=== PATIENT | male | born 1965 | race Caucasian/White ===

== ENCOUNTER 2016-06-10 04:16 | Inpatient (IN) | payer MEDICAID ==
[2016-06-09 13:25] LABS: HEMOGLOBIN 15.2 g/dL (13.7-18.0)
[2016-06-09 13:37] LABS: ASPARTATE AMINO TRANSFERASE 13 U/L (15-37); BLOOD UREA NITROGEN 8 mg/dL (7-18)
[~2016-06-10] VITALS: Ht 172.7 cm; Wt 76.4 kg
[~2016-06-10 04:16] MED LIST: AZIT500T PO; CIPR500T87 PO; GABA300C PO; HYDR-3138 PO; MELO7.5T5 PO; NAPR-874 PO; NICO1PAT4 TD; NONE PER PT; OXYC-229 PO; OXYC10TA6 PO; PARO10TA24 PO; QUET100T4 PO; RANI150T8 PO; SENN1TAB7 PO; SERT50TA PO
[2016-06-10] MEDS ORDERED: ALBUMIN HUMAN 5% 500 ML IV ONE (04:30)
[2016-06-10] MEDS ORDERED: DO NOT GIVE MC SCH (04:30)
[2016-06-10 04:32] VITALS: BP_SYST 113; BP_SYST 125; BP_DIAS 82; BP_DIAS 83
[2016-06-10] MEDS: CHLORHEXIDINE MOUTHWASH 15 ML UDC MM SCH ×2 (05:05→22:25)
[2016-06-10] MEDS: MUPIROCIN OINT 2%, 22GM TP SCH ×3 (05:05→21:35)
[2016-06-10] MEDS ORDERED: OXYcodone/APAP 5/325MG TABLET PO ONE (05:30)
[2016-06-10] MEDS ORDERED: INSULIN ASPART 100 UNITS/ML, PEN SQ-INSULIN SCH ×2 (06:00→13:00)
[2016-06-10] MEDS ORDERED: FENTANYL PF 1000 MCG/20ML ONE (06:49)
[2016-06-10] MEDS ORDERED: MIDAZOLAM 10MG/2 ML ONE (06:49)
[2016-06-10] MEDS ORDERED: POTASSIUM CHLORIDE 80 MEQ, SODIUM BICARBONATE 8.4% 10 MEQ, MAGNESIUM SULFATE 0.5 GM, LI... IV PRN (07:30)
[2016-06-10] MEDS ORDERED: VANCOMYCIN 1,100 MG in SODIUM CHLORIDE 0.9% 250 ML IV PRN (07:30)
[2016-06-10] MEDS ORDERED: REGULAR INSULIN 62.5 UNITS in SODIUM CHLORIDE 0.9% 249.375 ML IV PRN (07:30)
[2016-06-10] MEDS ORDERED: PHENYLEPHRINE 10 MG in SODIUM CHLORIDE 0.9% 249 ML IV PRN (07:30)
[2016-06-10] MEDS ORDERED: DEXMEDETOMIDINE 200 MCG in SODIUM CHLORIDE 0.9% 48 ML IV SCH (07:30)
[2016-06-10] MEDS ORDERED: EPINEPHRINE 2 MG in SODIUM CHLORIDE 0.9% 248 ML IV SCH (07:30)
[2016-06-10] MEDS ORDERED: CEFUROXIME 1.5 GM in SODIUM CHLORIDE 0.9% 50 ML IVPB PRN (07:30)
[2016-06-10] MEDS ORDERED: MANNITOL PMX 20% 500 ML IVPB PRN (07:30)
[2016-06-10] MEDS: SODIUM CHLORIDE FLUSH 10ML SYR IVF SCH ×2 (09:51→21:37)
[2016-06-10] MEDS: OXYcodone/APAP 5/325MG TABLET PO PRN ×3 (11:20→23:55)
[2016-06-10] MEDS ORDERED: ACETAMINOPHEN 325 MG TABLET PO PRN (13:00)
[2016-06-10] MEDS ORDERED: MAGNESIUM HYDROXIDE 8%, 30ML UDC PO PRN (13:00)
[2016-06-10 14:42] VITALS: BP 106/70
[2016-06-10 18:50] VITALS: BP 111/70
[2016-06-10] MEDS ORDERED: CHLORHEXIDINE MOUTHWASH 15 ML UDC MM PRN (19:00)
[2016-06-10] MEDS ORDERED: SODIUM CHLORIDE FLUSH 10ML SYR IVF SCH (21:00)
[2016-06-11] MEDS ORDERED: ALBUMIN HUMAN 5% 500 ML IV ONE (00:30)
[2016-06-11 04:43] VITALS: BP_SYST 108; BP_SYST 123; BP_DIAS 71; BP_DIAS 83
[2016-06-11] MEDS: MUPIROCIN OINT 2%, 22GM TP SCH ×2 (05:04→11:31)
[2016-06-11] MEDS: OXYcodone/APAP 5/325MG TABLET PO PRN (05:51)
[2016-06-11] MEDS ORDERED: MIDAZOLAM 10MG/2 ML ONE (06:46)
[2016-06-11] MEDS ORDERED: FENTANYL PF 1000 MCG/20ML ONE (06:46)
[2016-06-11] MEDS ORDERED: PROTAMINE SULFATE 10 MG/ML, 5ML ONE (07:22)
[2016-06-11] MEDS ORDERED: ROCURONIUM 10 MG/ML ONE ×2 (07:22)
[2016-06-11] MEDS ORDERED: DEXAMETHASONE 4 MG/ML, 1ML ONE (07:22)
[2016-06-11] MEDS ORDERED: PROPOFOL 10 MG/ML, 20ML ONE ×2 (07:22)
[2016-06-11] MEDS ORDERED: EPINEPHRINE 1 MG/ML, 1ML ONE (07:22)
[2016-06-11] MEDS ORDERED: VANCOMYCIN 1,100 MG in SODIUM CHLORIDE 0.9% 250 ML IVPB PRN (07:30)
[2016-06-11] MEDS ORDERED: REGULAR INSULIN 62.5 UNITS in SODIUM CHLORIDE 0.9% 249.375 ML IV PRN ×2 (07:30→10:11)
[2016-06-11] MEDS ORDERED: DEXMEDETOMIDINE 200 MCG in SODIUM CHLORIDE 0.9% 48 ML IV SCH (07:30)
[2016-06-11] MEDS ORDERED: POTASSIUM CHLORIDE 80 MEQ, SODIUM BICARBONATE 8.4% 10 MEQ, MAGNESIUM SULFATE 0.5 GM, LI... IV PRN (07:30)
[2016-06-11] MEDS ORDERED: MANNITOL PMX 20% 500 ML IVPB PRN (07:30)
[2016-06-11] MEDS ORDERED: CEFUROXIME 1.5 GM in SODIUM CHLORIDE 0.9% 50 ML IVPB PRN (07:30)
[2016-06-11] MEDS ORDERED: EPINEPHRINE 2 MG in SODIUM CHLORIDE 0.9% 248 ML IV SCH (07:30)
[2016-06-11] MEDS ORDERED: PHENYLEPHRINE 10 MG in SODIUM CHLORIDE 0.9% 249 ML IV PRN ×2 (07:30→10:11)
[2016-06-11] MEDS ORDERED: MAGNESIUM SULFATE PMX 2GM/50ML 50 ML ONE (09:23)
[2016-06-11] MEDS ORDERED: SODIUM CHLORIDE 0.9% 1,000 ML IV ONE (10:11)
[2016-06-11] MEDS ORDERED: DOBUTAMINE 250 MG in SODIUM CHLORIDE 0.9% 230 ML IV PRN (10:11)
[2016-06-11] MEDS ORDERED: NITROGLYCERIN/D5W PMX 250 ML IV PRN (10:11)
[2016-06-11] MEDS ORDERED: DEXMEDETOMIDINE 200 MCG in SODIUM CHLORIDE 0.9% 48 ML IV PRN (10:11)
[2016-06-11] MEDS ORDERED: SODIUM CHLORIDE 0.9% 1,000 ML IV PRN (10:11)
[2016-06-11] MEDS ORDERED: DEXTROSE 50%, 50ML SYRINGE IVPush PRN (10:30)
[2016-06-11] MEDS ORDERED: BISACODYL 5 MG EC TABLET PO PRN (10:30)
[2016-06-11] MEDS: KSCALE TO 4.5 IV SCH ×3 (10:30→22:30)
[2016-06-11] MEDS ORDERED: GLUCAGON 1 MG IM PRN (10:30)
[2016-06-11] MEDS ORDERED: MIDAZOLAM 1 MG/ML, 5ML IVPush PRN (10:30)
[2016-06-11] MEDS ORDERED: BISACODYL 10 MG SUPP PR PRN (10:30)
[2016-06-11] MEDS ORDERED: ACETAMINOPHEN 325 MG TABLET PO PRN (10:30)
[2016-06-11] MEDS ORDERED: DEXTROSE 4 GM TAB.CHEW PO PRN (10:30)
[2016-06-11] MEDS ORDERED: morphine SULFATE 10 MG/ML, 1ML IVPush PRN (10:30)
[2016-06-11] MEDS ORDERED: INSULIN ASPART 100 UNITS/ML, PEN SQ-INSULIN PRN (10:30)
[2016-06-11] MEDS ORDERED: EPINEPHRINE 2 MG in SODIUM CHLORIDE 0.9% 248 ML IV PRN (10:30)
[2016-06-11] MEDS ORDERED: MEPERIDINE/PF 25MG/0.5ML IVPush PRN (10:30)
[2016-06-11] MEDS ORDERED: ACETAMINOPHEN 650 MG SUPP PR PRN (10:30)
[2016-06-11] MEDS ORDERED: PROCHLORPERAZINE 5 MG/ML, 2ML IVPush PRN (10:30)
[2016-06-11 10:50] LABS: ABG COLLECTION SITE ARTERIAL LINE
[2016-06-11 10:51] LABS: FIO2 50 %
[2016-06-11 10:55] LABS: HEMOGLOBIN 11.4 g/dL (13.7-18.0)
[2016-06-11] MEDS ORDERED: LIDOCAINE 2% 100MG/5ML SYRINGE ONE (10:55)
[2016-06-11] MEDS ORDERED: SODIUM BICARB 8.4%, 50ML SYRINGE ONE (10:55)
[2016-06-11] MEDS ORDERED: ALBUMIN HUMAN 25% 50 ML ONE (10:55)
[2016-06-11] MEDS ORDERED: PROTAMINE SULFATE 10 MG/ML, 25ML ONE (10:55)
[2016-06-11] MEDS ORDERED: HEPARIN 1,000 UNITS/ML, 30ML ONE (10:55)
[2016-06-11] MEDS ORDERED: AMINOCAPROIC ACID 250 MG/ML, 20ML ONE (10:55)
[2016-06-11] MEDS ORDERED: CALCIUM CHLORIDE 10%, 10ML SYR ONE (10:55)
[2016-06-11] MEDS ORDERED: SODIUM BICARBONATE 1 MEQ/ML, 50ML VIAL ONE (10:55)
[2016-06-11] MEDS ORDERED: methylPREDNISolone SOD SUCC 125 MG/2 ML ONE (10:56)
[2016-06-11] MEDS ORDERED: HEPARIN 1,000 UNITS/ML, 10ML ONE (10:56)
[2016-06-11] MEDS: SODIUM BICARB 8.4%, 50ML SYRINGE IV PRN ×2 (10:58→12:45)
[2016-06-11] MEDS: MAGNESIUM SULFATE 1 GM in SODIUM CHLORIDE 0.9% 50 ML IVPB SCH (10:59)
[2016-06-11] MEDS: CLEVIDIPINE 50 ML IV PRN ×2 (11:05→17:50)
[2016-06-11] MEDS ORDERED: HYDROmorphone 2 MG/ML, 1ML ONE (11:14)
[2016-06-11] MEDS ORDERED: SODIUM CHLORIDE 0.9% 1,000ML IVBOLUS PRN (11:30)
[2016-06-11] MEDS ORDERED: HYDROmorphone 2 MG/ML, 1ML IVPush PRN (11:30)
[2016-06-11] MEDS: SODIUM CHLORIDE FLUSH 10ML SYR IVF SCH ×2 (11:31→21:14)
[2016-06-11] MEDS: WARFARIN MODERAT DOSE PROTOCOL XX SCH (12:00)
[2016-06-11] MEDS: HYDROmorphone 2 MG/ML, 1ML IVPush PRN ×5 (15:28→23:40)
[2016-06-11] MEDS: OXYcodone IR 5MG TABLET PO PRN ×2 (16:23→19:23)
[2016-06-11 16:38] LABS: HEMOGLOBIN 12.3 g/dL (13.7-18.0)
[2016-06-11] MEDS ORDERED: HYDROmorphone 1 MG/ML, 1ML ONE (17:08)
[2016-06-11] MEDS: ONDANSETRON 2MG/ML, 2ML IVPush PRN (18:37)
[2016-06-11] MEDS: CEFUROXIME 1.5 GM in SODIUM CHLORIDE 0.9% 50 ML IVPB SCH (18:38)
[2016-06-11] MEDS: VANCOMYCIN 1,100 MG in SODIUM CHLORIDE 0.9% 250 ML IVPB SCH (19:23)
[2016-06-11] MEDS ORDERED: SODIUM CHLORIDE FLUSH 10ML SYR IVF SCH (21:00)
[2016-06-11] MEDS: DOCUSATE 100 MG CAPSULE PO SCH (21:14)
[2016-06-11] MEDS: MUPIROCIN OINT 2%, 22GM NAS SCH (21:15)
[2016-06-11 22:38] LABS: HEMOGLOBIN 11.9 g/dL (13.7-18.0)
[2016-06-11] MEDS: KETOROLAC 30 MG/1 ML IVPush SCH (23:54)
[2016-06-12] MEDS: CLEVIDIPINE 50 ML IV PRN (01:34)
[2016-06-12] MEDS: OXYcodone IR 5MG TABLET PO PRN ×5 (02:42→23:00)
[2016-06-12] MEDS: HYDROmorphone 2 MG/ML, 1ML IVPush PRN ×3 (03:40→11:32)
[2016-06-12] MEDS: KSCALE TO 4.5 IV SCH (04:30)
[2016-06-12 06:04] LABS: ABG COLLECTION SITE NOT DOCUMENTED
[2016-06-12] MEDS: KETOROLAC 30 MG/1 ML IVPush SCH ×4 (06:06→23:00)
[2016-06-12] MEDS: CEFUROXIME 1.5 GM in SODIUM CHLORIDE 0.9% 50 ML IVPB SCH (06:07)
[2016-06-12 06:20] LABS: BLOOD UREA NITROGEN 12 mg/dL (7-18)
[2016-06-12] MEDS: VANCOMYCIN 1,100 MG in SODIUM CHLORIDE 0.9% 250 ML IVPB SCH (08:05)
[2016-06-12] MEDS: ASPIRIN 81 MG TABLET EC PO SCH (10:20)
[2016-06-12] MEDS: DOCUSATE 100 MG CAPSULE PO SCH ×2 (10:20→20:33)
[2016-06-12] MEDS: PANTOPRAZOLE 40 MG IV IVPush SCH (10:20)
[2016-06-12] MEDS: CHLORHEXIDINE MOUTHWASH 15 ML UDC MM SCH ×2 (10:20→20:33)
[2016-06-12] MEDS: MUPIROCIN OINT 2%, 22GM NAS SCH ×2 (10:21→20:33)
[2016-06-12] MEDS: SODIUM CHLORIDE FLUSH 10ML SYR IVF SCH (10:21)
[2016-06-12] MEDS: OXYcodone/APAP 5/325MG TABLET PO PRN ×2 (10:33→17:14)
[2016-06-12] MEDS: WARFARIN MODERAT DOSE PROTOCOL XX SCH (12:00)
[2016-06-12] MEDS: ONDANSETRON 2MG/ML, 2ML IVPush PRN (14:18)
[2016-06-12] MEDS: MAGNESIUM SULFATE 1 GM in SODIUM CHLORIDE 0.9% 50 ML IVPB SCH (14:19)
[2016-06-12] MEDS: HYDROcodone/APAP 10/325 MG TABLET PO PRN ×2 (15:23→21:43)
[2016-06-12] MEDS ORDERED: WARFARIN 7.5 MG TABLET PO-COUM ONE (18:00)
[2016-06-12] MEDS: INSULIN ASPART 100 UNITS/ML, PEN SQ-INSULIN SCH (20:33)
[2016-06-13 04:00] VITALS: BP 130/73
[2016-06-13 04:26] LABS: HEMOGLOBIN 9.9 g/dL (13.7-18.0)
[2016-06-13 04:36] LABS: BLOOD UREA NITROGEN 18 mg/dL (7-18)
[2016-06-13] MEDS: OXYcodone/APAP 5/325MG TABLET PO PRN ×2 (05:15→12:37)
[2016-06-13] MEDS: KETOROLAC 30 MG/1 ML IVPush SCH ×3 (05:15→18:21)
[2016-06-13] MEDS: OXYcodone IR 5MG TABLET PO PRN ×3 (07:46→20:23)
[2016-06-13] MEDS ORDERED: POTASSIUM CHLORIDE 10 MEQ TABLET.ER PO SCH (09:00)
[2016-06-13] MEDS ORDERED: FUROSEMIDE 20 MG/2 ML IV SCH (09:00)
[2016-06-13] MEDS ORDERED: ENOXAPARIN 40 MG/0.4 ML SQ SCH (09:00)
[2016-06-13] MEDS: INSULIN ASPART 100 UNITS/ML, PEN SQ-INSULIN SCH ×5 (10:01→20:33)
[2016-06-13] MEDS: CHLORHEXIDINE MOUTHWASH 15 ML UDC MM SCH (10:02)
[2016-06-13] MEDS: MUPIROCIN OINT 2%, 22GM NAS SCH ×2 (10:02→20:33)
[2016-06-13] MEDS: ASPIRIN 81 MG TABLET EC PO SCH (10:02)
[2016-06-13] MEDS: PANTOPRAZOLE 40 MG IV IVPush SCH (10:02)
[2016-06-13] MEDS: DOCUSATE 100 MG CAPSULE PO SCH ×2 (10:02→20:33)
[2016-06-13] MEDS: MAGNESIUM SULFATE 1 GM in SODIUM CHLORIDE 0.9% 50 ML IVPB SCH (10:04)
[2016-06-13] MEDS: WARFARIN MODERAT DOSE PROTOCOL XX SCH (12:00)
[2016-06-13] MEDS: ONDANSETRON 2MG/ML, 2ML IVPush PRN ×2 (12:37→16:31)
[2016-06-13 16:00] VITALS: BP 119/79
[2016-06-13] MEDS ORDERED: OXYcodone IR 5MG TABLET ONE ×2 (16:20→20:22)
[2016-06-13] MEDS ORDERED: ONDANSETRON 2MG/ML, 2ML ONE (16:30)
[2016-06-13] MEDS ORDERED: WARFARIN 7.5 MG TABLET PO-COUM ONE (18:00)
[2016-06-13] MEDS ORDERED: PROCHLORPERAZINE 5 MG/ML, 2ML ONE (18:23)
[2016-06-13 19:23] VITALS: BP 131/80
[2016-06-13] MEDS ORDERED: ACETAMINOPHEN 650 MG SUPP PR PRN (20:30)
[2016-06-13] MEDS ORDERED: ONDANSETRON 2MG/ML, 2ML IVPush PRN (20:30)
[2016-06-13] MEDS ORDERED: BISACODYL 5 MG EC TABLET PO PRN (20:30)
[2016-06-13] MEDS ORDERED: PROCHLORPERAZINE 5 MG/ML, 2ML IVPush PRN (20:30)
[2016-06-13] MEDS: ENOXAPARIN 40 MG/0.4 ML SQ SCH (20:30)
[2016-06-13] MEDS ORDERED: DEXTROSE 50%, 50ML SYRINGE IVPush PRN (20:30)
[2016-06-13] MEDS ORDERED: OXYcodone/APAP 5/325MG TABLET PO PRN (20:30)
[2016-06-13] MEDS ORDERED: ACETAMINOPHEN 325 MG TABLET PO PRN (20:30)
[2016-06-13] MEDS ORDERED: BISACODYL 10 MG SUPP PR PRN (20:30)
[2016-06-13] MEDS ORDERED: SODIUM CHLORIDE 0.9% 1,000 ML IV PRN (20:30)
[2016-06-13] MEDS ORDERED: DEXTROSE 4 GM TAB.CHEW PO PRN (20:30)
[2016-06-13] MEDS ORDERED: HYDROcodone/APAP 10/325 MG TABLET PO PRN (20:30)
[2016-06-13] MEDS ORDERED: DO NOT GIVE MC SCH (20:30)
[2016-06-13] MEDS ORDERED: GLUCAGON 1 MG IM PRN (20:30)
[2016-06-13] MEDS ORDERED: CHLORHEXIDINE MOUTHWASH 15 ML UDC MM SCH (20:30)
[2016-06-13] MEDS ORDERED: MAGNESIUM HYDROXIDE 8%, 30ML UDC PO PRN (20:30)
[2016-06-14] MEDS: KETOROLAC 30 MG/1 ML IVPush SCH ×5 (00:09→23:38)
[2016-06-14] MEDS: OXYcodone IR 5MG TABLET PO PRN ×8 (00:09→23:37)
[2016-06-14 02:00] VITALS: BP 120/80
[2016-06-14 04:22] LABS: BLOOD UREA NITROGEN 17 mg/dL (7-18)
[2016-06-14] MEDS: INSULIN ASPART 100 UNITS/ML, PEN SQ-INSULIN SCH ×2 (07:00→11:54)
[2016-06-14] MEDS: WARFARIN MODERAT DOSE PROTOCOL XX SCH (07:32)
[2016-06-14 08:38] VITALS: BP 134/82
[2016-06-14] MEDS: ASPIRIN 81 MG TABLET EC PO SCH (09:44)
[2016-06-14] MEDS: DOCUSATE 100 MG CAPSULE PO SCH ×2 (09:44→21:12)
[2016-06-14] MEDS: POTASSIUM CHLORIDE 10 MEQ TABLET.ER PO SCH (09:44)
[2016-06-14] MEDS: MUPIROCIN OINT 2%, 22GM NAS SCH ×2 (09:51→21:12)
[2016-06-14] MEDS: PANTOPRAZOLE 40 MG IV IVPush SCH (09:53)
[2016-06-14] MEDS: FUROSEMIDE 20 MG/2 ML IV SCH (09:55)
[2016-06-14 13:45] VITALS: BP 133/77
[2016-06-14] MEDS ORDERED: WARFARIN 5 MG TABLET PO-COUM ONE (18:00)
[2016-06-14 20:01] VITALS: BP 144/85
[2016-06-14] MEDS: ENOXAPARIN 40 MG/0.4 ML SQ SCH (21:12)
[2016-06-15 02:06] VITALS: BP 130/77
[2016-06-15] MEDS: OXYcodone IR 5MG TABLET PO PRN ×7 (04:03→23:43)
[2016-06-15 05:02] LABS: BLOOD UREA NITROGEN 17 mg/dL (7-18)
[2016-06-15] MEDS: KETOROLAC 30 MG/1 ML IVPush SCH ×4 (05:49→23:43)
[2016-06-15 07:53] VITALS: BP 133/88
[2016-06-15] MEDS ORDERED: HOLD COUMADIN MC PRN (08:00)
[2016-06-15] MEDS: PANTOPRAZOLE 40 MG IV IVPush SCH (10:13)
[2016-06-15] MEDS: MUPIROCIN OINT 2%, 22GM NAS SCH ×2 (10:14→20:36)
[2016-06-15] MEDS: DOCUSATE 100 MG CAPSULE PO SCH ×2 (10:14→20:35)
[2016-06-15] MEDS: FUROSEMIDE 20 MG/2 ML IV SCH (10:14)
[2016-06-15] MEDS: POTASSIUM CHLORIDE 10 MEQ TABLET.ER PO SCH (10:15)
[2016-06-15] MEDS: ASPIRIN 81 MG TABLET EC PO SCH (10:16)
[2016-06-15] MEDS: WARFARIN MODERAT DOSE PROTOCOL XX SCH (12:00)
[2016-06-15 13:28] VITALS: BP_SYST 129; BP_SYST 155; BP_DIAS 82; BP_DIAS 91
[2016-06-15 19:38] VITALS: BP 145/83
[2016-06-16] MEDS: OXYcodone IR 5MG TABLET PO PRN ×4 (02:28→13:09)
[2016-06-16 02:38] VITALS: BP 160/79
[2016-06-16] MEDS: KETOROLAC 30 MG/1 ML IVPush SCH ×3 (05:33→18:00)
[2016-06-16 05:43] LABS: BLOOD UREA NITROGEN 15 mg/dL (7-18)
[2016-06-16 07:24] VITALS: BP 138/78
[2016-06-16] MEDS ORDERED: HOLD COUMADIN MC PRN (08:00)
[2016-06-16] MEDS: MUPIROCIN OINT 2%, 22GM NAS SCH (09:00)
[2016-06-16] MEDS: ASPIRIN 81 MG TABLET EC PO SCH (10:51)
[2016-06-16] MEDS: FUROSEMIDE 20 MG/2 ML IV SCH (10:51)
[2016-06-16] MEDS: DOCUSATE 100 MG CAPSULE PO SCH (10:51)
[2016-06-16] MEDS: PANTOPRAZOLE 40 MG IV IVPush SCH (10:51)
[2016-06-16] MEDS: POTASSIUM CHLORIDE 10 MEQ TABLET.ER PO SCH (10:51)
[2016-06-16] MEDS: WARFARIN MODERAT DOSE PROTOCOL XX SCH (12:00)
[2016-06-16 15:15] VITALS: BP 137/84
[2016-06-16] MEDS ORDERED: ASPI-621 PO (15:28)
[2016-06-16] MEDS ORDERED: DOCU100C8 PO (15:29)
[2016-06-16] MEDS ORDERED: PANT40GR PO (15:33)
[2016-06-16] MEDS ORDERED: WARF1POW PO (15:38)
[2016-06-16] MEDS ORDERED: OXYC5TAB3 PO (15:51)
== END 2016-06-16 19:00 | disposition home health service (06) | DRG 221 ==
LOC: 5SO 04:16 → CCU 06-11 09:50 → UNDODISIN 06-13 15:49 → 5SO 06-13 16:12
PROVIDERS: ADMIT Thoracic Surgery (Cardiothoracic Vascular Surgery); ATTEND Thoracic Surgery (Cardiothoracic Vascular Surgery)
PROC: 0T9B70Z Drainage of Bladder with Drainage Device, Via Natural or Artificial Opening (ICD-10-PCS; 2016-06-09)
PROC: 5A1221Z Performance of Cardiac Output, Continuous (ICD-10-PCS; 2016-06-11)
PROC: B24BZZ4 Ultrasonography of Heart with Aorta, Transesophageal (ICD-10-PCS; 2016-06-11)
PROC: 02RF0JZ Replacement of Aortic Valve with Synthetic Substitute, Open Approach (ICD-10-PCS; principal; 2016-06-11 07:30)
DX: Q23.1 Congenital insufficiency of aortic valve (principal); F43.10 Post-traumatic stress disorder, unspecified; F17.210 Nicotine dependence, cigarettes, uncomplicated; Z79.01 Long term (current) use of anticoagulants; Z88.5 Allergy status to narcotic agent; Z88.8 Allergy status to other drugs, medicaments and biological substances
CPT/HCPCS: 36415; 36600; 71010; 71020; 80048; 80053; 81003; 82040; 82330; 82800; 82803; 82810; 82947; 82962; 83036; 83735; 84132; 84295; 85014; 85018; 85025; 85049; 85347; 85610; 85730; 86850; 86900; 86923; 87081; 88305; 88311; 93005; 93312; 93321; 93325; 94002; C1768; J0171; J0697; J1100; J1170; J1644; J1650; J1815; J1885; J2250; J2405; J2704; J2720; J3010; J3370; J3475; J3480; J3490; P9045; P9047; C1751; C1760; C9113; C9248; J0780; J1940; J2370; J2930; J7030; J7050

== ENCOUNTER 2016-07-07 11:10 | Emergency (ER) | payer MEDICAID ==
[~2016-07-07] VITALS: Ht 172.7 cm; Wt 73.0 kg
[~2016-07-07 11:10] MED LIST changes: +ASPI-621 PO; +DOCU100C8 PO; +OXYC5TAB3 PO; +PANT40GR PO; +WARF1POW PO
[2016-07-07] MEDS ORDERED: FENTANYL PF 100 MCG/2ML IVPush STA (11:23)
[2016-07-07] MEDS ORDERED: OXYC-223 PO (11:41)
[2016-07-07] MEDS ORDERED: METH-356 PO (11:41)
[2016-07-07] MEDS ORDERED: FENTANYL PF 100 MCG/2ML ONE (11:45)
[2016-07-07] MEDS ORDERED: ONDANSETRON 2MG/ML, 2ML ONE (11:45)
[2016-07-07 11:55] LABS: HEMOGLOBIN 13.1 g/dL (13.7-18.0)
[2016-07-07] MEDS ORDERED: ONDANSETRON 2MG/ML, 2ML IVPush ONE (12:00)
[2016-07-07 12:07] LABS: ASPARTATE AMINO TRANSFERASE 14 U/L (15-37); BLOOD UREA NITROGEN 9 mg/dL (7-18)
[2016-07-07 12:11] LABS: IS PT STATUS REG ER OR PRE ER? YES
[2016-07-07] MEDS ORDERED: LORazepam 2 MG/ML, 1ML ONE (12:36)
[2016-07-07] MEDS ORDERED: LORazepam 1MG TABLET PO ONE (13:00)
[2016-07-07] MEDS ORDERED: OMNIPAQUE 350 MG/ML, 100ML BOTTLE ONE (13:06)
[2016-07-07 13:23] VITALS: BP 117/76
== END 2016-07-07 14:25 | disposition home or self-care (01) ==
LOC: ED 14:11
DX: R07.2 Precordial pain (principal); J45.909 Unspecified asthma, uncomplicated; Z88.8 Allergy status to other drugs, medicaments and biological substances; Z88.1 Allergy status to other antibiotic agents
CPT/HCPCS: 36415; 71010; 71275; 74175; 80053; 83880; 84484; 85025; 85610; 93005; 96374; 96375; 99285; J2405; J3010; Q9967

== ENCOUNTER 2016-07-26 15:54 | Emergency (ER) | payer MEDICAID ==
[~2016-07-26] VITALS: Ht 175.3 cm; Wt 51.7 kg
[~2016-07-26 15:54] MED LIST changes: +METH-356 PO; +OXYC-223 PO
[2016-07-26] MEDS ORDERED: SERT25TA PO (17:23)
[2016-07-26] MEDS ORDERED: ZIPREXA PO (17:23)
[2016-07-26] MEDS ORDERED: SODIUM CHLORIDE 0.9% 1,000 ML IV ONE (18:01)
[2016-07-26] MEDS ORDERED: FAMOTIDINE 20 MG/2 ML ONE (18:18)
[2016-07-26] MEDS ORDERED: KETOROLAC 30 MG/1 ML ONE (18:18)
[2016-07-26] MEDS ORDERED: OXYcodone/APAP 5/325MG TABLET ONE (18:18)
[2016-07-26] MEDS ORDERED: MAALOX/HYOSCYAMINE/LIDOCAINE 45 ML BOTTLE ONE (18:18)
[2016-07-26] MEDS ORDERED: ONDANSETRON 2MG/ML, 2ML ONE (18:18)
[2016-07-26 18:29] LABS: ASPARTATE AMINO TRANSFERASE 12 U/L (15-37); BLOOD UREA NITROGEN 8 mg/dL (7-18)
[2016-07-26 18:30] LABS: IS PT STATUS REG ER OR PRE ER? YES
[2016-07-26] MEDS ORDERED: FAMOTIDINE 20 MG/2 ML IVP ONE (18:30)
[2016-07-26] MEDS ORDERED: KETOROLAC 30 MG/1 ML IVPush ONE (18:30)
[2016-07-26] MEDS ORDERED: ONDANSETRON 2MG/ML, 2ML IVPush ONE (18:30)
[2016-07-26] MEDS ORDERED: OXYcodone/APAP 5/325MG TABLET PO ONE (18:30)
[2016-07-26] MEDS ORDERED: MAALOX/HYOSCYAMINE/LIDOCAINE 45 ML BOTTLE PO ONE (18:30)
[2016-07-26 19:17] VITALS: BP 120/81
== END 2016-07-26 19:21 | disposition home or self-care (01) ==
LOC: ED 17:28
DX: K29.00 Acute gastritis without bleeding (principal); R07.89 Other chest pain; I25.2 Old myocardial infarction; K21.9 Gastro-esophageal reflux disease without esophagitis; M54.9 Dorsalgia, unspecified; G89.29 Other chronic pain; Z88.5 Allergy status to narcotic agent; Z88.8 Allergy status to other drugs, medicaments and biological substances
CPT/HCPCS: 36415; 74022; 76700; 80053; 84484; 85025; 85610; 93005; 96361; 96374; 96375; 99285; J1885; J2405; J7030; S0028

== ENCOUNTER 2016-08-07 16:01 | Emergency (ER) | payer MEDICAID ==
[~2016-08-07] VITALS: Ht 172.7 cm; Wt 74.8 kg
[~2016-08-07 16:01] MED LIST changes: +SERT25TA PO; +ZIPREXA PO
[2016-08-07 16:16] VITALS: BP 139/95
[2016-08-07] MEDS ORDERED: OXYcodone/APAP 5/325MG TABLET ONE (16:30)
[2016-08-07] MEDS ORDERED: OXYcodone/APAP 5/325MG TABLET PO ONE (16:30)
== END 2016-08-07 16:34 | disposition home or self-care (01) ==
LOC: ED 16:28
DX: Z76.0 Encounter for issue of repeat prescription (principal); I25.2 Old myocardial infarction; J45.909 Unspecified asthma, uncomplicated; K21.9 Gastro-esophageal reflux disease without esophagitis; Z95.2 Presence of prosthetic heart valve
CPT/HCPCS: 99283

== ENCOUNTER 2016-08-13 20:50 | Emergency (ER) | payer MEDICAID ==
[~2016-08-13] VITALS: Ht 152.4 cm; Wt 74.8 kg
[2016-08-13] MEDS ORDERED: OXYcodone/APAP 5/325MG TABLET ONE (22:11)
[2016-08-13 22:14] LABS: BLOOD UREA NITROGEN 10 mg/dL (7-18)
[2016-08-13 22:20] LABS: IS PT STATUS REG ER OR PRE ER? YES
[2016-08-13] MEDS ORDERED: WARFARIN 2 MG TABLET PO-COUM ONE (22:30)
[2016-08-13] MEDS ORDERED: OXYcodone/APAP 5/325MG TABLET PO ONE (22:30)
[2016-08-13 22:46] VITALS: BP 122/86
== END 2016-08-13 22:49 | disposition home or self-care (01) ==
LOC: ED 22:43
DX: R07.89 Other chest pain (principal); I25.2 Old myocardial infarction; M54.9 Dorsalgia, unspecified; G89.29 Other chronic pain; Z95.2 Presence of prosthetic heart valve
CPT/HCPCS: 36415; 71010; 80048; 82040; 84484; 85025; 85379; 85610; 85730; 93005; 99285

== ENCOUNTER 2016-08-19 19:01 | Observation (INO) | payer MEDICAID ==
[~2016-08-19] VITALS: Ht 172.7 cm; Wt 75.5 kg
[2016-08-19 19:51] LABS: DAU SCREEN DISCLAIMER
[2016-08-19 19:59] LABS: BLOOD UREA NITROGEN 8 mg/dL (7-18)
[2016-08-19 20:02] LABS: ACETAMINOPHEN < 2 mcg/mL (10-30)
[2016-08-19] MEDS ORDERED: OXYcodone/APAP 7.5/325MG TABLET PO ONE (22:30)
[2016-08-19] MEDS ORDERED: OXYcodone/APAP 7.5/325MG TABLET ONE (23:16)
[2016-08-20] MEDS ORDERED: POLYETHYLENE GLYCOL 17 GM PACKET PO PRN (00:30)
[2016-08-20] MEDS ORDERED: SERTRALINE PO SCH (00:30)
[2016-08-20] MEDS ORDERED: ONDANSETRON ODT 4 MG PO PRN (00:30)
[2016-08-20] MEDS ORDERED: NICOTINE 14MG/24 HR PATCH.TD24 TD SCH (00:30)
[2016-08-20] MEDS ORDERED: OXYcodone/APAP 7.5/325MG TABLET PO SCH (00:30)
[2016-08-20] MEDS ORDERED: ACETAMINOPHEN 325 MG TABLET PO PRN (00:30)
[2016-08-20] MEDS ORDERED: BISACODYL 10 MG SUPP PR PRN (00:30)
[2016-08-20 03:03] LABS: ASPARTATE AMINO TRANSFERASE 17 U/L (15-37)
[2016-08-20] MEDS: OLANZAPINE 5 MG TABLET PO SCH ×2 (06:00→20:30)
[2016-08-20] MEDS: OXYcodone/APAP 7.5/325MG TABLET PO SCH ×3 (06:51→17:57)
[2016-08-20 07:46] VITALS: BP 107/73
[2016-08-20] MEDS ORDERED: ASPIRIN 81 MG TABLET EC PO SCH (09:00)
[2016-08-20] MEDS ORDERED: SERTRALINE 100MG TABLET PO SCH (09:00)
[2016-08-20] MEDS ORDERED: SENNA/DOCUSATE TABLET PO SCH (09:00)
[2016-08-20] MEDS ORDERED: WARFARIN 3 MG TABLET PO-COUM ONE (18:00)
[2016-08-20 19:51] VITALS: BP 126/89
[2016-08-21] MEDS: OXYcodone/APAP 7.5/325MG TABLET PO SCH (00:12)
== END 2016-08-21 00:17 ==
LOC: ED 20:59 → EDIP 08-20 00:20 → 3E 08-20 05:25
PROVIDERS: ADMIT Internal Medicine; ATTEND Internal Medicine
DX: R45.851 Suicidal ideations (principal); F33.9 Major depressive disorder, recurrent, unspecified; F43.10 Post-traumatic stress disorder, unspecified; F41.9 Anxiety disorder, unspecified; D64.9 Anemia, unspecified; F12.10 Cannabis abuse, uncomplicated; F17.210 Nicotine dependence, cigarettes, uncomplicated; I35.0 Nonrheumatic aortic (valve) stenosis; F42.9 Obsessive-compulsive disorder, unspecified; K21.9 Gastro-esophageal reflux disease without esophagitis; Z95.2 Presence of prosthetic heart valve
CPT/HCPCS: 36415; 80048; 80076; 80307; 80329; 82040; 85025; 85610; 99285; G0378; G0480

== ENCOUNTER 2016-09-03 19:40 | Emergency (ER) | payer MEDICAID ==
[~2016-09-03] VITALS: Ht 172.7 cm; Wt 75.4 kg
[2016-09-03 19:42] VITALS: BP 163/93
[2016-09-03] MEDS ORDERED: OXYcodone/APAP 5/325MG TABLET ONE (20:29)
[2016-09-03] MEDS ORDERED: OXYcodone/APAP 5/325MG TABLET PO ONE (20:30)
== END 2016-09-03 20:40 | disposition home or self-care (01) ==
LOC: ED 20:36
DX: K02.9 Dental caries, unspecified (principal); Z87.01 Personal history of pneumonia (recurrent); I25.2 Old myocardial infarction; J45.909 Unspecified asthma, uncomplicated; M54.9 Dorsalgia, unspecified; G89.29 Other chronic pain; Z95.2 Presence of prosthetic heart valve
CPT/HCPCS: 99283

== ENCOUNTER 2016-09-08 20:55 | Emergency (ER) | payer MEDICAID ==
[~2016-09-08] VITALS: Ht 172.7 cm; Wt 74.0 kg
[2016-09-08] MEDS ORDERED: ASPIRIN 81 MG TABLET CHEW ONE (21:21)
[2016-09-08] MEDS ORDERED: KETOROLAC 30 MG/1 ML ONE (21:21)
[2016-09-08 21:28] VITALS: BP 107/73
[2016-09-08] MEDS ORDERED: PLEASE ENTER HEIGHT AND WEIGHT MC SCH (21:30)
[2016-09-08] MEDS ORDERED: ASPIRIN 81 MG TABLET CHEW PO ONE (21:30)
[2016-09-08] MEDS ORDERED: KETOROLAC 30 MG/1 ML IVPush ONE (21:30)
[2016-09-08 21:42] LABS: BLOOD UREA NITROGEN 14 mg/dL (7-18)
[2016-09-08] MEDS ORDERED: HALOPERIDOL 5 MG/ML IM STA (21:46)
[2016-09-08 21:47] LABS: IS PT STATUS REG ER OR PRE ER? YES
[2016-09-08] MEDS ORDERED: HALOPERIDOL 5 MG/ML ONE (21:56)
== END 2016-09-08 22:36 | disposition left against medical advice (07) ==
LOC: ED 22:30
DX: R07.89 Other chest pain (principal); E11.9 Type 2 diabetes mellitus without complications; F42.9 Obsessive-compulsive disorder, unspecified; F43.10 Post-traumatic stress disorder, unspecified; I10 Essential (primary) hypertension; K21.9 Gastro-esophageal reflux disease without esophagitis; Z79.01 Long term (current) use of anticoagulants; Z79.82 Long term (current) use of aspirin; Z95.2 Presence of prosthetic heart valve
CPT/HCPCS: 36415; 71010; 80048; 82040; 84484; 85025; 85610; 93005; 96372; 96374; 99285; J1630; J1885

== ENCOUNTER 2016-09-14 05:43 | Emergency (ER) | payer MEDICAID ==
[~2016-09-14] VITALS: Ht 172.7 cm; Wt 74.5 kg
[2016-09-14] MEDS ORDERED: KETOROLAC 30 MG/1 ML ONE (06:26)
[2016-09-14] MEDS ORDERED: SODIUM CHLORIDE FLUSH 10ML SYR IVF ONE ×2 (06:30→07:00)
[2016-09-14] MEDS ORDERED: KETOROLAC 30 MG/1 ML IVPush ONE (06:30)
[2016-09-14] MEDS ORDERED: KETOROLAC 30 MG/1 ML IM ONE (06:30)
[2016-09-14 06:49] LABS: BLOOD UREA NITROGEN 11 mg/dL (7-18)
[2016-09-14] MEDS ORDERED: OMNIPAQUE 350 MG/ML, 100ML BOTTLE ONE (07:51)
[2016-09-14] MEDS ORDERED: HYDROcodone/APAP 5/325 TABLET PO ONE (08:30)
[2016-09-14 09:34] VITALS: BP 123/73
== END 2016-09-14 09:36 | disposition home or self-care (01) ==
LOC: ED 08:35
DX: M94.0 Chondrocostal junction syndrome [Tietze] (principal); R07.89 Other chest pain; Z95.2 Presence of prosthetic heart valve; R79.1 Abnormal coagulation profile; I10 Essential (primary) hypertension; E11.9 Type 2 diabetes mellitus without complications; J45.909 Unspecified asthma, uncomplicated; Z88.6 Allergy status to analgesic agent; Z88.8 Allergy status to other drugs, medicaments and biological substances
CPT/HCPCS: 36415; 71010; 71275; 80048; 82040; 83880; 84484; 85025; 85610; 85730; 93005; 96372; 99285; J1885; Q9967

== ENCOUNTER 2016-09-28 16:38 | Emergency (ER) | payer MEDICAID ==
[~2016-09-28] VITALS: Ht 172.7 cm; Wt 73.6 kg
[2016-09-28] MEDS ORDERED: HYDROmorphone 1 MG/ML, 1ML ONE (16:59)
[2016-09-28] MEDS ORDERED: METOCLOPRAMIDE 5 MG/ML, 2ML ONE (16:59)
[2016-09-28] MEDS ORDERED: DIPHENHYDRAMINE 50 MG/ML, 1ML ONE (16:59)
[2016-09-28] MEDS ORDERED: SODIUM CHLORIDE 0.9% 1,000ML IVBOLUS ONE (17:00)
[2016-09-28] MEDS ORDERED: METOCLOPRAMIDE 5 MG/ML, 2ML IVPush ONE (17:00)
[2016-09-28] MEDS ORDERED: DIPHENHYDRAMINE 50 MG/ML, 1ML IVPush ONE (17:00)
[2016-09-28] MEDS ORDERED: SODIUM CHLORIDE FLUSH 10ML SYR IVF ONE ×2 (17:00)
[2016-09-28] MEDS ORDERED: HYDROmorphone 2 MG/ML, 1ML IVPush PRN (17:00)
[2016-09-28 17:15] LABS: BLOOD UREA NITROGEN 12 mg/dL (7-18)
[2016-09-28 17:19] LABS: IS PT STATUS REG ER OR PRE ER? YES
[2016-09-28] MEDS ORDERED: OMNIPAQUE 350 MG/ML, 100ML BOTTLE ONE (18:26)
[2016-09-28 19:13] VITALS: BP 126/69
== END 2016-09-28 19:15 | disposition home or self-care (01) ==
LOC: ED 18:37
DX: R07.89 Other chest pain (principal); I10 Essential (primary) hypertension; E11.9 Type 2 diabetes mellitus without complications; Z79.82 Long term (current) use of aspirin; Z95.2 Presence of prosthetic heart valve
CPT/HCPCS: 36415; 71010; 71275; 80048; 82040; 83880; 84484; 85025; 85610; 85730; 93005; 96361; 96374; 96375; 99285; J1170; J1200; J2765; J7030; Q9967

== ENCOUNTER 2016-10-06 21:15 | Emergency (ER) | payer MEDICAID ==
[~2016-10-06] VITALS: Ht 172.7 cm; Wt 72.7 kg
[2016-10-06 21:23] VITALS: BP 156/100
[2016-10-06] MEDS ORDERED: HYDROcodone/APAP 5/325 TABLET ONE (21:52)
[2016-10-06] MEDS ORDERED: HYDROcodone/APAP 5/325 TABLET PO ONE (22:00)
== END 2016-10-06 22:02 | disposition home or self-care (01) ==
LOC: ED 21:45
DX: K08.89 Other specified disorders of teeth and supporting structures (principal); I10 Essential (primary) hypertension; J45.909 Unspecified asthma, uncomplicated; F17.200 Nicotine dependence, unspecified, uncomplicated; Z95.2 Presence of prosthetic heart valve; Z88.8 Allergy status to other drugs, medicaments and biological substances; Z88.5 Allergy status to narcotic agent
CPT/HCPCS: 99283

== ENCOUNTER 2016-10-08 18:57 | Emergency (ER) | payer MEDICAID ==
[~2016-10-08] VITALS: Ht 172.7 cm; Wt 74.9 kg
[2016-10-08 19:04] VITALS: BP 139/91
[2016-10-08] MEDS ORDERED: DEXAMETHASONE 4 MG TABLET PO ONE (20:00)
[2016-10-08] MEDS ORDERED: HYDROmorphone 1 MG/ML, 1ML IM ONE (20:00)
[2016-10-08] MEDS ORDERED: DEXAMETHASONE 4 MG TABLET ONE (20:06)
[2016-10-08] MEDS ORDERED: HYDROmorphone 1 MG/ML, 1ML ONE (20:06)
== END 2016-10-08 20:34 | disposition home or self-care (01) ==
LOC: ED 19:31
DX: K08.89 Other specified disorders of teeth and supporting structures (principal); E11.9 Type 2 diabetes mellitus without complications; I10 Essential (primary) hypertension; I25.10 Atherosclerotic heart disease of native coronary artery without angina pectoris; J45.909 Unspecified asthma, uncomplicated; Z95.2 Presence of prosthetic heart valve
CPT/HCPCS: 96372; 99283; J1170

== ENCOUNTER 2016-11-05 08:14 | Emergency (ER) | payer MEDICAID ==
[~2016-11-05] VITALS: Ht 172.7 cm; Wt 73.5 kg
[2016-11-05] MEDS ORDERED: SODIUM CHLORIDE FLUSH 10ML SYR IVF ONE (08:30)
[2016-11-05] MEDS ORDERED: LORazepam 2 MG/ML, 1ML IVPush ONE (08:30)
[2016-11-05] MEDS ORDERED: MORPHINE SULFATE 4 MG/ML, 1ML IVPush ONE (08:30)
[2016-11-05] MEDS ORDERED: SODIUM CHLORIDE 0.9% 1,000ML IVBOLUS ONE (08:30)
[2016-11-05 08:45] LABS: HEMATOCRIT 41.5 % (39.2-51.8); HEMOGLOBIN 13.9 g/dL (13.7-18.0)
[2016-11-05] MEDS ORDERED: MORPHINE SULFATE 4 MG/ML, 1ML ONE (08:47)
[2016-11-05] MEDS ORDERED: LORazepam 2 MG/ML, 1ML ONE (08:47)
[2016-11-05] MEDS ORDERED: PLEASE ENTER HEIGHT AND WEIGHT MC SCH (09:00)
[2016-11-05 09:02] LABS: BLOOD UREA NITROGEN 13 mg/dL (7-18)
[2016-11-05 09:08] LABS: IS PT STATUS REG ER OR PRE ER? YES
[2016-11-05 09:30] VITALS: BP 132/82
[2016-11-05 11:00] LABS: DAU SCREEN DISCLAIMER
[2016-11-05] MEDS ORDERED: morphine SULFATE 10 MG/ML, 1ML IVPush ONE (11:00)
[2016-11-05 11:32] LABS: IS PT STATUS REG ER OR PRE ER? YES
[2016-11-05] MEDS ORDERED: OLAN5TAB3 PO (23:13)
== END 2016-11-05 12:58 | disposition home or self-care (01) ==
LOC: ED 10:21
DX: R07.89 Other chest pain (principal); R79.89 Other specified abnormal findings of blood chemistry; F15.10 Other stimulant abuse, uncomplicated; I25.10 Atherosclerotic heart disease of native coronary artery without angina pectoris; E11.9 Type 2 diabetes mellitus without complications; I35.0 Nonrheumatic aortic (valve) stenosis; I25.2 Old myocardial infarction; I10 Essential (primary) hypertension; F43.10 Post-traumatic stress disorder, unspecified; J45.909 Unspecified asthma, uncomplicated
CPT/HCPCS: 36415; 71010; 80048; 80307; 82040; 84484; 85025; 93005; 96361; 96374; 96375; 99285; J2060; J7030

== ENCOUNTER 2016-11-05 22:58 | Observation (INO) | payer MEDICAID ==
[~2016-11-05] VITALS: Ht 172.7 cm; Wt 73.5 kg
[2016-11-05] MEDS ORDERED: OLAN5TAB3 PO (23:13)
[2016-11-05] MEDS ORDERED: MORPHINE SULFATE 4 MG/ML, 1ML ONE (23:21)
[2016-11-05] MEDS: MORPHINE SULFATE 4 MG/ML, 1ML IVPush PRN (23:23)
[2016-11-05] MEDS ORDERED: SODIUM CHLORIDE 0.9% 1,000ML IVBOLUS ONE (23:30)
[2016-11-05 23:48] LABS: HEMATOCRIT 40.2 % (39.2-51.8); HEMOGLOBIN 13.1 g/dL (13.7-18.0); WHITE BLOOD COUNT 5.8 x10^3/uL (3.4-10)
[2016-11-05 23:59] LABS: BLOOD UREA NITROGEN 12 mg/dL (7-18)
[2016-11-06 00:03] LABS: IS PT STATUS REG ER OR PRE ER? YES
[2016-11-06] MEDS: MORPHINE SULFATE 4 MG/ML, 1ML IVPush PRN (00:16)
[2016-11-06] MEDS ORDERED: SODIUM CHLORIDE 0.9% 1,000 ML IV SCH (00:49)
[2016-11-06] MEDS ORDERED: LORazepam 2 MG/ML, 1ML IVPush ONE ×2 (01:00)
[2016-11-06] MEDS ORDERED: NITROGLYCERIN 0.4 MG BOTTLE (25 TABS) SL PRN (01:00)
[2016-11-06] MEDS ORDERED: NITROGLYCERIN 0.4 MG/SPRAY SL PRN (01:00)
[2016-11-06] MEDS ORDERED: LABETALOL 5MG/ML, 20ML IVPush PRN (01:00)
[2016-11-06] MEDS ORDERED: ACETAMINOPHEN 325 MG TABLET PO PRN (01:00)
[2016-11-06 01:45] VITALS: BP 138/93
[2016-11-06] MEDS ORDERED: ZOLOFT MC SCH (02:30)
[2016-11-06] MEDS ORDERED: NICOTINE 14MG/24 HR PATCH.TD24 TD SCH (03:00)
[2016-11-06] MEDS: HEPARIN 5,000 UNITS/ML, 1ML SQ SCH ×2 (03:52→12:39)
[2016-11-06] MEDS: OXYcodone/APAP 5/325MG TABLET PO PRN ×4 (03:52→13:49)
[2016-11-06 06:00] LABS: IS PT STATUS REG ER OR PRE ER? NO
[2016-11-06] MEDS ORDERED: METOPROLOL TARTRATE 25 MG TABLET PO SCH (06:00)
[2016-11-06 06:23] VITALS: BP 122/83
[2016-11-06 08:04] VITALS: BP 139/79
[2016-11-06] MEDS ORDERED: ASPIRIN 81 MG TABLET EC PO SCH (09:00)
[2016-11-06 12:48] VITALS: BP 137/93
[2016-11-06 13:43] LABS: IS PT STATUS REG ER OR PRE ER? NO
[2016-11-06 15:48] LABS: DAU SCREEN DISCLAIMER
[2016-11-06 19:11] VITALS: BP 128/88
[2016-11-06] MEDS ORDERED: OLANZAPINE 5 MG TABLET PO SCH (21:00)
[2016-11-06] MEDS ORDERED: SERTRALINE PO SCH (21:00)
[2016-11-06] MEDS ORDERED: SERTRALINE 50MG TABLET PO SCH (21:00)
[2016-11-06] MEDS ORDERED: ATORVASTATIN 10 MG TABLET PO SCH (21:00)
== END 2016-11-06 19:50 | disposition home or self-care (01) ==
LOC: ED 23:49 → INTOOBSV 11-06 00:52 → EDIP 11-06 00:52 → 5SO 11-06 02:13
DX: I25.119 Atherosclerotic heart disease of native coronary artery with unspecified angina pectoris (principal); I21.4 Non-ST elevation (NSTEMI) myocardial infarction; F15.10 Other stimulant abuse, uncomplicated; I35.0 Nonrheumatic aortic (valve) stenosis; I11.9 Hypertensive heart disease without heart failure; E11.9 Type 2 diabetes mellitus without complications; F33.2 Major depressive disorder, recurrent severe without psychotic features; K21.9 Gastro-esophageal reflux disease without esophagitis; J45.909 Unspecified asthma, uncomplicated; Z87.891 Personal history of nicotine dependence; Z95.2 Presence of prosthetic heart valve
CPT/HCPCS: 36415; 80048; 80307; 82040; 83735; 84100; 84484; 85025; 93005; 93306; 96361; 96372; 96374; 96376; 99285; G0378; J1644; J7030

== ENCOUNTER 2017-01-25 13:43 | Emergency (ER) | payer MEDICAID ==
[~2017-01-25] VITALS: Ht 172.7 cm; Wt 76.3 kg
[~2017-01-25 13:43] MED LIST changes: +DOCU100C33 PO; -DOCU100C8 PO; -HYDR-3138 PO; +HYDR-3237 PO; -NAPR-874 PO; +NAPR250T6 PO; +NICO-486 TD; -NICO1PAT4 TD; +OLAN5TAB3 PO; -OXYC-223 PO; -OXYC-229 PO; +OXYC-306 PO; +OXYC-307 PO; -PARO10TA24 PO; +PARO10TA56 PO
[2017-01-25 13:49] VITALS: BP 153/85
[2017-01-25] MEDS ORDERED: KETOROLAC 30 MG/1 ML IM ONE (14:30)
[2017-01-25] MEDS ORDERED: KETOROLAC 30 MG/1 ML ONE (14:52)
== END 2017-01-25 15:12 | disposition home or self-care (01) ==
LOC: ED 15:06
DX: S46.911A Strain of unspecified muscle, fascia and tendon at shoulder and upper arm level, right arm, initial encounter (principal); S39.012A Strain of muscle, fascia and tendon of lower back, initial encounter; E11.9 Type 2 diabetes mellitus without complications; F32.9 Major depressive disorder, single episode, unspecified; F41.9 Anxiety disorder, unspecified; I10 Essential (primary) hypertension; G89.29 Other chronic pain; W11.XXXA Fall on and from ladder, initial encounter; Y93.89 Activity, other specified; Y92.89 Other specified places as the place of occurrence of the external cause; Y99.8 Other external cause status
CPT/HCPCS: 72080; 73030; 96372; 99284; J1885

== ENCOUNTER 2017-01-26 11:20 | Emergency (ER) | payer MEDICAID ==
[~2017-01-26] VITALS: Ht 172.7 cm; Wt 77.7 kg
[2017-01-26 11:27] VITALS: BP 122/73
[2017-01-26] MEDS ORDERED: DIAZEPAM 5 MG TABLET PO ONE (12:00)
[2017-01-26] MEDS ORDERED: OXYcodone/APAP 5/325MG TABLET PO ONE ×2 (12:00→12:30)
[2017-01-26] MEDS ORDERED: KETOROLAC 30 MG/1 ML IM ONE (12:00)
[2017-01-26] MEDS ORDERED: KETOROLAC 30 MG/1 ML ONE (12:02)
[2017-01-26] MEDS ORDERED: DIAZEPAM 5 MG TABLET ONE (12:02)
[2017-01-26] MEDS ORDERED: OXYcodone/APAP 5/325MG TABLET ONE ×2 (12:02→12:43)
== END 2017-01-26 12:49 | disposition home or self-care (01) ==
LOC: ED 11:48
DX: S39.012A Strain of muscle, fascia and tendon of lower back, initial encounter (principal); I10 Essential (primary) hypertension; E11.9 Type 2 diabetes mellitus without complications; K21.9 Gastro-esophageal reflux disease without esophagitis; J45.909 Unspecified asthma, uncomplicated; Z88.5 Allergy status to narcotic agent; Z88.8 Allergy status to other drugs, medicaments and biological substances; W11.XXXA Fall on and from ladder, initial encounter; Y93.89 Activity, other specified; Y99.8 Other external cause status; Y92.89 Other specified places as the place of occurrence of the external cause
CPT/HCPCS: 96372; 99284; J1885

== ENCOUNTER 2017-03-22 19:30 | Emergency (ER) | payer MEDICAID ==
[~2017-03-22] VITALS: Ht 172.7 cm; Wt 78.2 kg
[2017-03-22] MEDS ORDERED: PROPOFOL 10 MG/ML, 20ML ONE (21:09)
[2017-03-22] MEDS ORDERED: PROPOFOL 10 MG/ML, 20ML IVPush ONE (21:30)
[2017-03-22 22:25] VITALS: BP 119/74
== END 2017-03-22 22:29 | disposition home or self-care (01) ==
LOC: ED 21:06
DX: T18.128A Food in esophagus causing other injury, initial encounter (principal); E11.9 Type 2 diabetes mellitus without complications; I25.2 Old myocardial infarction; Z95.2 Presence of prosthetic heart valve; X58.XXXA Exposure to other specified factors, initial encounter; Y93.89 Activity, other specified; Y92.89 Other specified places as the place of occurrence of the external cause; Y99.8 Other external cause status
CPT/HCPCS: 71010; 88305; 93005; 99152; 99285

== ENCOUNTER 2017-04-06 14:54 | Emergency (ER) | payer MEDICAID ==
[~2017-04-06] VITALS: Ht 172.7 cm; Wt 79.7 kg
[2017-04-06 16:08] LABS: BASOPHILS # (AUTO) 0.06 x10^3/uL (0-0.1); BASOPHILS % (AUTO) 1 % (0-1); EOSINOPHILS # (AUTO) 0.57 x10^3/uL (0-0.4); EOSINOPHILS % (AUTO) 7 % (1-7); LYMPHOCYTES # (AUTO) 3.26 x10^3/uL (1-3.4); LYMPHOCYTES % (AUTO) 37 % (22-44); MD NO; MEAN CORPUSCULAR HEMOGLOBIN 31.2 pg (27.5-34.5); MEAN CORPUSCULAR HGB CONC 33.9 g/dL (33.2-36.2); MEAN CORPUSCULAR VOLUME 92.1 fL (81-97); MEAN PLATELET VOLUME 7.2 fL (7.4-10.4); MONOCYTES # (AUTO) 0.74 x10^3/uL (0.2-0.8); MONOCYTES % (AUTO) 9 % (2-9); NEUTROPHILS % (AUTO) 47 % (42-75); PLATELET COUNT 340 x10^3/uL (130-400); RED BLOOD COUNT 4.93 x10^6/uL (4.38-5.82); RED CELL DISTRIBUTION WIDTH 14.5 % (9.4-14.8)
[2017-04-06 16:18] LABS: ALBUMIN 3.6 g/dL (3.4-5.0); ANION GAP 7 mmol/L (5-15); CALCIUM 8.9 mg/dL (8.5-10.1); CHLORIDE 108 mmol/L (98-107); CREATININE 0.96 mg/dL (0.7-1.3)
[2017-04-06] MEDS ORDERED: ACETAMINOPHEN 500 MG TABLET PO ONE (17:00)
[2017-04-06] MEDS ORDERED: KETOROLAC 30 MG/1 ML IM ONE (17:00)
[2017-04-06] MEDS ORDERED: KETOROLAC 30 MG/1 ML ONE (17:04)
[2017-04-06] MEDS ORDERED: ACETAMINOPHEN 500 MG TABLET ONE (17:04)
[2017-04-06 17:24] VITALS: BP 115/79
[2017-04-06 17:33] LABS: CULTURE INDICATED? NO; MICROSCOPIC NOT IND
== END 2017-04-06 18:49 | disposition home or self-care (01) ==
LOC: ED 18:43
DX: I86.1 Scrotal varices (principal); N43.3 Hydrocele, unspecified; E11.9 Type 2 diabetes mellitus without complications; E66.9 Obesity, unspecified; F42.9 Obsessive-compulsive disorder, unspecified; I10 Essential (primary) hypertension; I25.10 Atherosclerotic heart disease of native coronary artery without angina pectoris; Z95.2 Presence of prosthetic heart valve; G89.29 Other chronic pain; M54.9 Dorsalgia, unspecified; I25.2 Old myocardial infarction; Z88.5 Allergy status to narcotic agent; Z88.8 Allergy status to other drugs, medicaments and biological substances
CPT/HCPCS: 36415; 76870; 80048; 81003; 82040; 85025; 86592; 87491; 87591; 96372; 99285; J1885

== ENCOUNTER 2017-04-08 19:12 | Emergency (ER) | payer MEDICAID ==
[~2017-04-08] VITALS: Ht 172.7 cm; Wt 81.4 kg
[2017-04-08 19:14] VITALS: BP 152/86
[2017-04-08] MEDS ORDERED: ACETAMINOPHEN 325 MG TABLET PO ONE (20:30)
[2017-04-08] MEDS ORDERED: ACETAMINOPHEN 325 MG TABLET ONE (20:30)
[2017-04-08] MEDS ORDERED: KETOROLAC 30 MG/1 ML IM ONE (20:30)
[2017-04-08] MEDS ORDERED: KETOROLAC 30 MG/1 ML ONE (20:31)
== END 2017-04-08 21:08 | disposition left against medical advice (07) ==
LOC: ED 20:59
DX: N50.811 Right testicular pain (principal); N43.3 Hydrocele, unspecified; I25.10 Atherosclerotic heart disease of native coronary artery without angina pectoris; E11.9 Type 2 diabetes mellitus without complications; I10 Essential (primary) hypertension; I25.2 Old myocardial infarction; F42.9 Obsessive-compulsive disorder, unspecified; F43.10 Post-traumatic stress disorder, unspecified
CPT/HCPCS: 96372; 99283; J1885

== ENCOUNTER 2017-04-17 09:19 | Emergency (ER) | payer MEDICAID ==
[~2017-04-17] VITALS: Ht 172.7 cm; Wt 79.0 kg
[2017-04-17 09:28] VITALS: BP 132/88
[2017-04-17] MEDS ORDERED: ALBUTEROL/IPRATROPIUM 2.5MG/0.5MG, 3 ML NPPB SCH (10:00)
[2017-04-17] MEDS ORDERED: ALBUTEROL/IPRATROPIUM 2.5MG/0.5MG, 3 ML ONE (10:14)
== END 2017-04-17 10:36 | disposition home or self-care (01) ==
LOC: ED 09:38
DX: J45.901 Unspecified asthma with (acute) exacerbation (principal); Z76.0 Encounter for issue of repeat prescription; E11.9 Type 2 diabetes mellitus without complications; I10 Essential (primary) hypertension
CPT/HCPCS: 93005; 94640; 99283; J7512; J7620

== ENCOUNTER 2017-05-15 21:02 | Emergency (ER) | payer MEDICAID ==
[~2017-05-15] VITALS: Ht 172.7 cm; Wt 82.1 kg
[2017-05-15 21:16] VITALS: BP 147/94
[2017-05-16] MEDS ORDERED: LORazepam 1MG TABLET PO ONE (01:00)
[2017-05-16] MEDS ORDERED: LORazepam 1MG TABLET ONE (01:20)
== END 2017-05-16 01:42 | disposition home or self-care (01) ==
LOC: ED 23:46
DX: F30.11 Manic episode without psychotic symptoms, mild (principal); F41.1 Generalized anxiety disorder; I25.2 Old myocardial infarction; E11.9 Type 2 diabetes mellitus without complications; F42.9 Obsessive-compulsive disorder, unspecified; F17.200 Nicotine dependence, unspecified, uncomplicated; Z91.14 Patient's other noncompliance with medication regimen; Z76.0 Encounter for issue of repeat prescription
CPT/HCPCS: 93005; 99284

== ENCOUNTER 2017-06-12 18:28 | Emergency (ER) | payer MEDICAID ==
[~2017-06-12] VITALS: Ht 172.7 cm; Wt 83.8 kg
[2017-06-12 18:44] VITALS: BP 108/77
== END 2017-06-12 19:46 | disposition home or self-care (01) ==
LOC: ED 19:00
DX: J45.909 Unspecified asthma, uncomplicated (principal); E11.9 Type 2 diabetes mellitus without complications; F31.9 Bipolar disorder, unspecified; F42.9 Obsessive-compulsive disorder, unspecified; I10 Essential (primary) hypertension; F43.10 Post-traumatic stress disorder, unspecified; Z95.2 Presence of prosthetic heart valve; K21.9 Gastro-esophageal reflux disease without esophagitis; Z88.5 Allergy status to narcotic agent; Z88.8 Allergy status to other drugs, medicaments and biological substances; Z88.6 Allergy status to analgesic agent
CPT/HCPCS: 99283

== ENCOUNTER 2017-10-10 11:30 | Emergency (ER) | payer MEDICAID ==
[~2017-10-10] VITALS: Ht 172.7 cm; Wt 86.5 kg
[~2017-10-10 11:30] MED LIST changes: +RANI150T23 PO; -RANI150T8 PO
[2017-10-10 11:32] VITALS: BP 152/93
[2017-10-10] MEDS ORDERED: HYDROcodone/APAP 5/325 TABLET PO ONE (12:00)
[2017-10-10] MEDS ORDERED: HYDROcodone/APAP 5/325 TABLET ONE (12:21)
== END 2017-10-10 12:28 | disposition home or self-care (01) ==
LOC: ED 12:00
DX: K08.89 Other specified disorders of teeth and supporting structures (principal); G89.29 Other chronic pain; K21.9 Gastro-esophageal reflux disease without esophagitis; J44.9 Chronic obstructive pulmonary disease, unspecified; I25.2 Old myocardial infarction; I10 Essential (primary) hypertension; E11.9 Type 2 diabetes mellitus without complications; I25.10 Atherosclerotic heart disease of native coronary artery without angina pectoris
CPT/HCPCS: 99282

== ENCOUNTER 2017-12-16 19:24 | Emergency (ER) | payer MEDICAID ==
[~2017-12-16] VITALS: Ht 172.7 cm; Wt 87.8 kg
[~2017-12-16 19:24] MED LIST changes: -SENN1TAB7 PO; +SENN1TAB8 PO
[2017-12-16 19:34] VITALS: BP 125/87
== END 2017-12-16 20:08 | disposition left against medical advice (07) ==
LOC: ED 19:55
DX: K08.89 Other specified disorders of teeth and supporting structures (principal)
CPT/HCPCS: 99281

== ENCOUNTER 2018-01-07 18:28 | Emergency (ER) | payer MEDICAID ==
[~2018-01-07] VITALS: Ht 172.7 cm; Wt 87.8 kg
[2018-01-07 18:53] VITALS: BP 157/116
[2018-01-07 19:06] LABS: BASOPHILS # (AUTO) 0.07 x10^3/uL (0-0.1); BASOPHILS % (AUTO) 1 % (0-1); EOSINOPHILS # (AUTO) 0.88 x10^3/uL (0-0.4); EOSINOPHILS % (AUTO) 8 % (1-7); LYMPHOCYTES % (AUTO) 35 % (22-44); MD NO; MEAN CORPUSCULAR HEMOGLOBIN 31.7 pg (27.5-34.5); MEAN CORPUSCULAR HGB CONC 34.4 g/dL (33.2-36.2); MEAN CORPUSCULAR VOLUME 92.2 fL (81-97); MEAN PLATELET VOLUME 7.5 fL (7.4-10.4); MONOCYTES # (AUTO) 1.19 x10^3/uL (0.2-0.8); MONOCYTES % (AUTO) 10 % (2-9); NEUTROPHILS # (AUTO) 5.43 x10^3/uL (1.8-6.8); NEUTROPHILS % (AUTO) 47 % (42-75); PLATELET COUNT 349 x10^3/uL (130-400); RED BLOOD COUNT 4.87 x10^6/uL (4.38-5.82); RED CELL DISTRIBUTION WIDTH 13.7 % (9.4-14.8)
[2018-01-07 19:17] LABS: ALBUMIN 3.6 g/dL (3.4-5.0); ANION GAP 7 mmol/L (5-15); CALCIUM 8.6 mg/dL (8.5-10.1); CHLORIDE 104 mmol/L (98-107)
[2018-01-07 19:20] LABS: ALANINE AMINOTRANSFERASE 29 U/L (12-78); ALKALINE PHOSPHATASE 81 U/L (45-117); BILIRUBIN,TOTAL 0.3 mg/dL (0.2-1.0); CREATININE 1.04 mg/dL (0.7-1.3); TOTAL PROTEIN 8.3 g/dL (6.4-8.2)
[2018-01-07 19:24] LABS: TROPONIN I < 0.015 ng/mL (0.000-0.045)
[2018-01-07] MEDS ORDERED: KETOROLAC 30 MG/1 ML IM ONE (19:30)
[2018-01-07 19:39] LABS: CULTURE INDICATED? NO; MICROSCOPIC NOT IND
[2018-01-07 19:48] LABS: AMPHETAMINE SCREEN, URINE Negative (Negative); BARBITURATE SCREEN, URINE Negative (Negative); BENZODIAZEPINE SCREEN, URINE Negative (Negative); CANNABINOID SCREEN, URINE Negative (Negative); COCAINE SCREEN, URINE Negative (Negative); METHADONE SCREEN, URINE Negative (Negative); OPIATE SCREEN, URINE Positive (Negative)
[2018-01-07] MEDS ORDERED: KETOROLAC 30 MG/1 ML ONE (20:34)
[2018-01-07] MEDS ORDERED: MAALOX/HYOSCYAMINE/LIDOCAINE 45 ML BTL ONE (20:46)
[2018-01-07] MEDS ORDERED: MAALOX/HYOSCYAMINE/LIDOCAINE 45 ML BTL PO ONE (21:00)
== END 2018-01-07 21:14 | disposition home or self-care (01) ==
LOC: ED 20:53
DX: K29.00 Acute gastritis without bleeding (principal); E11.9 Type 2 diabetes mellitus without complications; I10 Essential (primary) hypertension; I25.2 Old myocardial infarction; K21.9 Gastro-esophageal reflux disease without esophagitis; I25.10 Atherosclerotic heart disease of native coronary artery without angina pectoris; F17.200 Nicotine dependence, unspecified, uncomplicated
CPT/HCPCS: 36415; 80053; 80307; 81003; 83690; 84484; 85025; 86677; 96372; 99284; J1885

== ENCOUNTER 2018-11-01 20:28 | Emergency (ER) | payer MEDICAID ==
[~2018-11-01] VITALS: Ht 172.7 cm; Wt 86.0 kg
[2018-11-01 23:31] VITALS: BP 120/76
== END 2018-11-01 23:33 | disposition home or self-care (01) ==
LOC: ED 23:16
DX: N45.1 Epididymitis (principal); N43.3 Hydrocele, unspecified; F31.9 Bipolar disorder, unspecified; I25.10 Atherosclerotic heart disease of native coronary artery without angina pectoris; I11.0 Hypertensive heart disease with heart failure; F41.1 Generalized anxiety disorder; F43.10 Post-traumatic stress disorder, unspecified; G89.29 Other chronic pain; Z95.4 Presence of other heart-valve replacement
CPT/HCPCS: 76870; 96372; 99284; J0696

== ENCOUNTER 2018-11-03 13:18 | Emergency (ER) | payer MEDICAID ==
[~2018-11-03] VITALS: Ht 172.7 cm; Wt 86.4 kg
[2018-11-03 15:35] VITALS: BP 157/79
== END 2018-11-03 17:58 | disposition home or self-care (01) ==
LOC: ED 16:09
DX: N45.1 Epididymitis (principal); N43.3 Hydrocele, unspecified; I10 Essential (primary) hypertension; E11.9 Type 2 diabetes mellitus without complications; I25.10 Atherosclerotic heart disease of native coronary artery without angina pectoris; I25.2 Old myocardial infarction; J45.909 Unspecified asthma, uncomplicated; G89.29 Other chronic pain
CPT/HCPCS: 99281

== ENCOUNTER 2019-03-08 19:15 | Emergency (ER) | payer MEDICAID ==
[~2019-03-08] VITALS: Ht 172.7 cm; Wt 88.8 kg
[~2019-03-08 19:15] MED LIST changes: -ASPI-621 PO; +ASPI81TA45 PO; -METH-356 PO; +METH10TA2 PO; +RANI-467 PO; -RANI150T23 PO; +SENN-177 PO; -SENN1TAB8 PO
[2019-03-08 20:54] LABS: BASOPHILS % (AUTO) 1 % (0-1); EOSINOPHILS # (AUTO) 0.78 x10^3/uL (0-0.4); EOSINOPHILS % (AUTO) 9 % (1-7); LYMPHOCYTES # (AUTO) 3.44 x10^3/uL (1-3.4); LYMPHOCYTES % (AUTO) 39 % (22-44); MD NO; MEAN CORPUSCULAR HEMOGLOBIN 31.4 pg (27.5-34.5); MEAN CORPUSCULAR HGB CONC 32.8 g/dL (33.2-36.2); MEAN CORPUSCULAR VOLUME 95.7 fL (81-97); MEAN PLATELET VOLUME 7.5 fL (7.4-10.4); MONOCYTES # (AUTO) 0.67 x10^3/uL (0.2-0.8); MONOCYTES % (AUTO) 8 % (2-9); NEUTROPHILS # (AUTO) 3.79 x10^3/uL (1.8-6.8); NEUTROPHILS % (AUTO) 43 % (42-75); PLATELET COUNT 333 x10^3/uL (130-400); RED BLOOD COUNT 4.41 x10^6/uL (4.38-5.82); RED CELL DISTRIBUTION WIDTH 14.3 % (9.4-14.8)
[2019-03-08 21:05] LABS: ALANINE AMINOTRANSFERASE 25 U/L (12-78); ALBUMIN 3.4 g/dL (3.4-5.0); ANION GAP 4 mmol/L (5-15); CALCIUM 8.4 mg/dL (8.5-10.1); CHLORIDE 108 mmol/L (98-107); CREATININE 1.14 mg/dL (0.7-1.3)
[2019-03-08 21:10] LABS: ALKALINE PHOSPHATASE 71 U/L (45-117); BILIRUBIN,TOTAL 0.2 mg/dL (0.2-1.0); TOTAL PROTEIN 7.3 g/dL (6.4-8.2); TROPONIN I < 0.015 ng/mL (0.000-0.045)
[2019-03-08] MEDS ORDERED: KETOROLAC 30 MG/1 ML ONE (21:21)
[2019-03-08 21:28] VITALS: BP 146/80
--- NOTE | 2019-03-08 21:28 | NUR ---
PT MEDICATED PER ERP ORDER FOR 8/10 CHEST PAIN. PT DESCRIBES PAIN ACROSS CHEST, SHARP AND INTERMITTENT WITH MORE FREQUENT EPISODES OF "COSTOCHONDRITIS" FOR PAST 1.5 MONTHS. CALL LIGHT WITHIN REACH, WARM BLANKET.
[2019-03-08] MEDS ORDERED: KETOROLAC 30 MG/1 ML IM ONE (21:30)
== END 2019-03-08 21:54 | disposition home or self-care (01) ==
LOC: ED 21:28
DX: R07.89 Other chest pain (principal); R05 Cough; R06.00 Dyspnea, unspecified; E11.9 Type 2 diabetes mellitus without complications; K21.9 Gastro-esophageal reflux disease without esophagitis; I10 Essential (primary) hypertension; Z72.9 Problem related to lifestyle, unspecified; Z87.19 Personal history of other diseases of the digestive system
CPT/HCPCS: 36415; 71045; 80053; 84484; 85025; 93005; 96372; 99284; J1885

== ENCOUNTER 2019-08-02 14:28 | Emergency (ER) | payer MEDICAID ==
[~2019-08-02] VITALS: Ht 172.7 cm; Wt 87.9 kg
[2019-08-02 14:29] VITALS: BP 150/101
--- NOTE | 2019-08-02 15:07 | NUR ---
PT HAS CO TESTICULAR PAIN THAT HAS INCREASED W PAIN TODAY. PT HAS HX OF EPIDIDYMITIS. DENIES TRAUMA, NO PROBLEMS VOIDING. AMBULATED TO BATHROOM W STEADY GATE. UA SENT
[2019-08-02 15:18] LABS: MICROSCOPIC NOT IND
[2019-08-02 15:24] LABS: CULTURE INDICATED? NO
[2019-08-02] MEDS ORDERED: KETOROLAC 30 MG/1 ML ONE (15:24)
[2019-08-02] MEDS ORDERED: PHENAZOPYRIDINE 200 MG TABLET ONE (15:24)
[2019-08-02] MEDS ORDERED: PHENAZOPYRIDINE 200 MG TABLET PO ONE (15:30)
[2019-08-02] MEDS ORDERED: KETOROLAC 30 MG/1 ML IM ONE (15:30)
--- NOTE | 2019-08-02 15:30 | NUR ---
MEDICATED FOR PAIN
--- NOTE | 2019-08-02 16:01 | NUR ---
PT BACK FROM US. PT RESTING COMFORTABLE. NO FURTHER NEEDS
--- NOTE | 2019-08-02 16:24 | NUR ---
Patient/Caregiver given discharge instructions and they have confirmed that they understand the instructions. Patient ambulatory with steady gait.
== END 2019-08-02 16:44 | disposition home or self-care (01) ==
LOC: ED 16:24
DX: I86.1 Scrotal varices (principal); N43.3 Hydrocele, unspecified; I10 Essential (primary) hypertension; E11.9 Type 2 diabetes mellitus without complications; J45.909 Unspecified asthma, uncomplicated; I25.10 Atherosclerotic heart disease of native coronary artery without angina pectoris; I25.2 Old myocardial infarction; F17.200 Nicotine dependence, unspecified, uncomplicated; Z95.4 Presence of other heart-valve replacement
CPT/HCPCS: 76870; 81003; 96372; 99285; J1885

== ENCOUNTER 2019-11-14 10:38 | Emergency (ER) | payer MEDICAID ==
[~2019-11-14] VITALS: Ht 172.7 cm; Wt 86.0 kg
[2019-11-14] MEDS ORDERED: MAALOX/HYOSCYAMINE/LIDOCAINE 45 ML BTL PO ONE (11:00)
[2019-11-14 11:12] LABS: BASOPHILS # (AUTO) 0.07 x10^3/uL (0-0.1); BASOPHILS % (AUTO) 1 % (0-1); EOSINOPHILS # (AUTO) 0.58 x10^3/uL (0-0.4); EOSINOPHILS % (AUTO) 6 % (1-7); LYMPHOCYTES # (AUTO) 2.53 x10^3/uL (1-3.4); LYMPHOCYTES % (AUTO) 27 % (22-44); MD NO; MEAN CORPUSCULAR HEMOGLOBIN 31.3 pg (27.5-34.5); MEAN CORPUSCULAR HGB CONC 33.1 g/dL (33.2-36.2); MEAN CORPUSCULAR VOLUME 94.3 fL (81-97); MEAN PLATELET VOLUME 7.1 fL (7.4-10.4); MONOCYTES # (AUTO) 0.73 x10^3/uL (0.2-0.8); MONOCYTES % (AUTO) 8 % (2-9); NEUTROPHILS # (AUTO) 5.39 x10^3/uL (1.8-6.8); NEUTROPHILS % (AUTO) 58 % (42-75); PLATELET COUNT 332 x10^3/uL (130-400); RED BLOOD COUNT 4.88 x10^6/uL (4.38-5.82); RED CELL DISTRIBUTION WIDTH 13.4 % (9.4-14.8)
[2019-11-14 11:25] LABS: ALANINE AMINOTRANSFERASE 21 U/L (12-78); ALBUMIN 3.7 g/dL (3.4-5.0); ANION GAP 4 mmol/L (5-15); CALCIUM 8.9 mg/dL (8.5-10.1); CHLORIDE 111 mmol/L (98-107)
[2019-11-14 11:30] LABS: ALKALINE PHOSPHATASE 90 U/L (45-117); BILIRUBIN,TOTAL 0.5 mg/dL (0.2-1.0); TOTAL PROTEIN 7.8 g/dL (6.4-8.2); TROPONIN I < 0.015 ng/mL (0.000-0.045)
[2019-11-14] MEDS ORDERED: PLEASE ENTER HEIGHT AND WEIGHT MC SCH (11:30)
[2019-11-14] MEDS ORDERED: MAALOX/HYOSCYAMINE/LIDOCAINE 45 ML BTL ONE (11:42)
[2019-11-14 12:28] VITALS: BP 127/99
== END 2019-11-14 12:30 | disposition home or self-care (01) ==
LOC: ED 11:32
DX: R07.89 Other chest pain (principal); R11.0 Nausea; R10.9 Unspecified abdominal pain; E11.9 Type 2 diabetes mellitus without complications; I25.2 Old myocardial infarction; I10 Essential (primary) hypertension; I25.10 Atherosclerotic heart disease of native coronary artery without angina pectoris; F17.210 Nicotine dependence, cigarettes, uncomplicated
CPT/HCPCS: 36415; 71045; 80053; 83690; 84484; 85025; 85379; 93005; 99285; 99406

== ENCOUNTER 2020-07-30 20:29 | Emergency (ER) | payer MEDICAID ==
[~2020-07-30] VITALS: Ht 172.7 cm; Wt 87.6 kg
[~2020-07-30 20:29] MED LIST changes: +NAPR-872 PO; -NAPR250T6 PO; -OXYC-306 PO; -OXYC-307 PO; +OXYC-380 PO; +OXYC1TAB17 PO; -OXYC5TAB3 PO; +OXYC5TAB98 PO
[2020-07-30] MEDS ORDERED: HYDROmorphone 1 MG/ML, 1ML INJ IV ONE (21:30)
[2020-07-30] MEDS ORDERED: HYDROmorphone 1 MG/ML, 1ML INJ ONE ×2 (21:34→22:51)
[2020-07-30 21:43] LABS: MICROSCOPIC NOT IND
[2020-07-30 21:43] LABS: BASOPHILS % (AUTO) 1 % (0-1); EOSINOPHILS % (AUTO) 7 % (1-7); LYMPHOCYTES % (AUTO) 39 % (22-44); MEAN CORPUSCULAR HEMOGLOBIN 31.5 pg (27.5-34.5); MEAN PLATELET VOLUME 7.4 fL (7.4-10.4); MONOCYTES % (AUTO) 11 % (2-9); NEUTROPHILS % (AUTO) 42 % (42-75); PLATELET COUNT 325 x10^3/uL (130-400); RED BLOOD COUNT 4.35 x10^6/uL (4.38-5.82); RED CELL DISTRIBUTION WIDTH 13.2 % (9.4-14.8)
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
[2020-07-30 21:46] LABS: MD NO
[2020-07-30 21:51] LABS: ALANINE AMINOTRANSFERASE 18 U/L (12-78); ALBUMIN 3.4 g/dL (3.4-5.0); ANION GAP 5 mmol/L (5-15); CALCIUM 8.5 mg/dL (8.5-10.1); CHLORIDE 108 mmol/L (98-107); CREATININE 1.06 mg/dL (0.7-1.3)
[2020-07-30 21:54] LABS: ALKALINE PHOSPHATASE 84 U/L (45-117); BILIRUBIN,TOTAL 0.2 mg/dL (0.2-1.0); TOTAL PROTEIN 7.3 g/dL (6.4-8.2)
--- NOTE | 2020-07-30 22:22 | NUR ---
1ST CONTACT C PT. RESTING ON CART, STATES PAIN IS BETTER, NOW 10/05. U/S AT BS. WILL CTM.
[2020-07-30 23:52] VITALS: BP 121/62
[2020-07-31] MEDS ORDERED: HYDROmorphone 1 MG/ML, 1ML INJ IV ONE
== END 2020-07-30 23:54 | disposition home or self-care (01) ==
LOC: ED 22:34
DX: G89.18 Other acute postprocedural pain (principal); N50.811 Right testicular pain; R11.0 Nausea; I10 Essential (primary) hypertension; E11.9 Type 2 diabetes mellitus without complications; I25.2 Old myocardial infarction; K21.9 Gastro-esophageal reflux disease without esophagitis; J45.909 Unspecified asthma, uncomplicated; F17.200 Nicotine dependence, unspecified, uncomplicated
CPT/HCPCS: 36415; 76870; 80053; 81003; 85025; 96374; 96376; 99284; J1170